=== PATIENT | female | born 1990 | race Caucasian/White ===

== ENCOUNTER 2022-03-06 15:41 | Observation (INO) | payer MEDICAID, OTHER ==
[~2022-03-06] VITALS: Ht 160 cm; Wt 91.2 kg
== END 2022-03-06 16:39 | disposition home or self-care (01) ==
LOC: SPU 15:41
PROVIDERS: ADMIT Obstetrics & Gynecology; ATTEND Obstetrics & Gynecology
DX: O26.893 Other specified pregnancy related conditions, third trimester (principal); R60.0 Localized edema; O13.3 Gestational [pregnancy-induced] hypertension without significant proteinuria, third trimester; Z3A.38 38 weeks gestation of pregnancy
CPT/HCPCS: 81002; G0378